=== PATIENT | female | born 1950 | race Caucasian/White ===

== ENCOUNTER 2016-12-29 16:49 | Observation (INO) ==
[2016-12-29] MEDS ORDERED: NITROGLYCERIN SL ONE (19:32)
[2016-12-29] MEDS ORDERED: ZOFRAN IV PRN ×2 (19:32→21:39)
[2016-12-29] MEDS ORDERED: GLUCAGON SUBQ ONE (19:33)
[2016-12-29] MEDS ORDERED: STERILE WATER INJ. ONE (19:44)
[2016-12-29] MEDS ORDERED: SODIUM CHLORIDE 0.9% INJ ONE ×2 (20:50→21:39)
[2016-12-29] MEDS ORDERED: PHENERGAN IV ONE (20:50)
[2016-12-29] MEDS ORDERED: NS 1,000 ML IV ONE (20:59)
[2016-12-29] MEDS ORDERED: SODIUM CHLORIDE 0.9% INJ PRN (21:39)
[2016-12-29] MEDS ORDERED: PHENERGAN IV PRN (21:39)
[2016-12-29] MEDS ORDERED: NS 1,000 ML IV SCH (21:39)
[2016-12-29] MEDS ORDERED: ATIVAN IV PRN (21:39)
[2016-12-29 23:07] LABS: HEMATOCRIT 35.3 % (37.0-47.0); MCH 32.8 PG (27-31); MCV 96.4 FL (81-99); MPV 10.6 FL (7.4-10.4); RBC 3.66 XMIL (4.2-5.4)
[2016-12-29] MEDS: PROTONIX IV SCH (23:25)
[2016-12-29 23:38] LABS: AGAP 10; BUN 10 mg/dL (8-22); CALCIUM 7.9 mg/dL (8.8-10.2); CHLORIDE 109 mmol/L (98-107); COSMO 288; POTASSIUM 4.1 mmol/L (3.5-5.1); SODIUM 146 mmol/L (136-145); TCO2 27 mmol/L (25-35)
[2016-12-30 07:13] LABS: AGAP 12; BUN 10 mg/dL (8-22); CALCIUM 8.7 mg/dL (8.8-10.2); CHLORIDE 108 mmol/L (98-107); COSMO 285; MAGNESIUM 1.7 mg/dL (1.5-2.7); POTASSIUM 4.1 mmol/L (3.5-5.1); SODIUM 144 mmol/L (136-145); TCO2 24 mmol/L (25-35)
[2016-12-30] MEDS: DEMEROL IV PRN ×4 (07:34→17:12)
[2016-12-30] MEDS ORDERED: DIPRIVAN 1% ONE (10:30)
[2016-12-30] MEDS: PROTONIX IV SCH (11:21)
[2016-12-30] MEDS ORDERED: CENTRUM SILVER PO SCH (11:30)
[2016-12-30] MEDS ORDERED: CARAFATE PO SCH (11:30)
[2016-12-30 13:39] VITALS: BP 132/65
== END 2016-12-30 17:23 | disposition home or self-care (01) ==
LOC: 4N 16:49 → ED 16:49 → SUATTDRO 21:34 → 4N 21:41
PROVIDERS: ATTEND Internal Medicine

== ENCOUNTER 2019-03-14 09:12 | Inpatient (IN) ==
[2019-03-14 10:51] LABS: BASO# 0.02 X1000 (0.0-0.2); BASO% 0.4 % (0.0-0.8); EOS# 0.18 X1000 (0.0-0.7); EOS% 3.4 % (0.0-10.0); HEMATOCRIT 37.9 % (37.0-47.0); HEMOGLOBIN 12.4 g/dL (12.0-16.0); LYMPH# 1.78 X1000 (1.2-3.4); LYMPH% 33.3 % (20.5-51.1); MCH 30.8 PG (27-31); MCHC 32.7 g/dL (33-37); MCV 94.3 FL (81-99); MONO% 9.4 % (1.7-9.3); NEUT# 2.86 X1000 (1.4-6.5); NEUT% 53.5 % (42.2-75.2); PLT 211 X1000 (130-400); RBC 4.02 XMIL (4.2-5.4); WBC 5.34 X1000 (4.8-10.8)
[2019-03-14 10:55] LABS: URINE SOURCE CLEAN CATCH
[2019-03-14] MEDS ORDERED: NS 1,000 ML IV PRN (10:57)
[2019-03-14 10:58] LABS: BILIRUBIN URINE NEGATIVE (NEGATIVE); BLOOD URINE NEGATIVE (NEGATIVE); COLOR YELLOW; GLUCOSE URINE NEGATIVE (NEGATIVE); KETONE URINE NEGATIVE (NEGATIVE); LEUKOCYTES URINE NEGATIVE (NEGATIVE); NITRITE URINE NEGATIVE (NEGATIVE); PH URINE 6.5; PROTEIN URINE NEGATIVE (NEGATIVE); SP GRAVITY URINE 1.008; TURBIDITY URINE CLEAR (CLEAR); UROBILINOGEN URINE NORMAL (NORMAL)
[2019-03-14 10:59] LABS: UR EPITHELIAL CELLS <10 /HPF (<10); URINE BACTERIA NEGATIVE /HPF; URINE RBC <10 /HPF (<10); URINE WBC <10 /HPF (<10)
--- NOTE | 2019-03-14 11:03 | EKG Report ---
Test Performed on : 03/14/2019 09:23:48 AM Test Reason : SOB Blood Pressure : / mmHG Vent. Rate : 069 BPM Atrial Rate : 069 BPM P-R Int : 170 ms QRS Dur : 080 ms QT Int : 392 ms P-R-T Axes : 090 088 083 degrees QTc Int : 420 ms Normal sinus rhythm. Normal ECG No previous ECGs available Unconfirmed Result
[2019-03-14 11:30] LABS: AGAP 11; ALB/GLOB RATIO 1.4; ALBUMIN 3.5 g/dL (3.5-5.0); ALKALINE PHOSPHATASE 113 U/L (32-104); BUN 8 mg/dL (8-22); CALCIUM 8.7 mg/dL (8.8-10.2); CHLORIDE 101 mmol/L (98-107); COSMO 277; CREATININE 0.8 mg/dL (0.5-0.9); ESTIMATED GFR > 60; GLUCOSE 93 mg/dL (70-104); GOT 12 U/L (10-30); GPT 6 U/L (10-36); SODIUM 140 mmol/L (136-145); TCO2 28 mmol/L (25-35); TOTAL BILIRUBIN 0.55 mg/dL (0.20-1.00)
--- NOTE | 2019-03-14 11:30 | Diag Imaging Result Doc PS360 ---
EXAM: CT HEAD W/O CONTRAST 03/14/2019 HISTORY: stroke like symptoms TECHNIQUE: This exam was performed using automated exposure control, adjustment of mA or kV according to patient size, and/or use of iterative reconstruction technique. COMMENT: There are calcifications in the internal carotid arteries bilaterally. There is no evidence of mass effect, bleed, or abnormal extra-axial fluid collection. The calvarium is intact. The visualized paranasal sinuses are clear. IMPRESSION: No evidence of acute intracranial disease. Electronically signed by Mannie Carbajal 03/14/2019 11:28 AM
--- NOTE | 2019-03-14 11:40 | Diag Imaging Result Doc PS360 ---
CHEST-PORTABLE - 03/14/2019 INDICATION: stroke like symptoms COMPARISON: 09/14/2017 FINDINGS: The lungs are normally expanded and clear. Heart size and mediastinal contours are normal. No pneumothorax or pleural effusion. IMPRESSION: Negative exam. Electronically signed by Sagar Liang 03/14/2019 11:38 AM
[2019-03-14 12:03] LABS: INR 1.03; PROTIME 13.7 Seconds (11.0-16.0)
[2019-03-14 12:04] LABS: PTT 36.3 Seconds (22.3-41.8)
--- NOTE | 2019-03-14 13:30 | PROVIDER DOCUMENTATION ---
This chart was entered by Crystal Price Scribe, acting as scribe for Phil Harper MD. HPI-Neurological Disorder - General Chief Complaint: Altered Mental Status Stated Complaint: SOB Time Seen by Provider: 03/14/19 10:43 Source: patient, family Allergies/Adverse Reactions: Patient Allergies Allergy/AdvReac Type Severity Reaction Status Date / Time No Known Allergies Allergy Verified 01/29/18 09:11 Home Medications: Home Medication List Medication Instructions Recorded Confirmed Last Taken Type Gabapentin 300 mg PO DAILY 01/29/18 03/14/19 02/05/18 History Hydromorphone HCl [Dilaudid] 4 mg PO TID 01/29/18 03/14/19 02/06/18 History - History of Present Illness-Neuro Nature of Presenting Problem: Patient is a 68 year old female who presents for stroke like symptoms. States having confusion this morning at 0430. Family reports patient having slurred speech and lightheadedness. Patient states symptoms have resolved. Severity: reports: mild Onset/Duration: reports: this morning (0430) Timing: reports: gone now Context: reports: impaired speech (slurred), other (AMS) Character of Altered Mental Status: reports: confused Character of Deficits: reports: impaired speech (slurred) Associated Symptoms: reports: other (lightheadedness) Similar Symptoms Previously?: No Recently seen or treated by another doctor?: No Review of Systems - Adult - REVIEW OF SYSTEMS - ADULT Constitutional: reports: no symptoms reported Eyes: reports: no symptoms reported Ears, Nose, Mouth & Throat: reports: no symptoms reported Cardiovascular: reports: no symptoms reported Respiratory: reports: no symptoms reported Gastrointestinal: reports: no symptoms reported Genitourinary: reports: no symptoms reported Musculoskeletal: reports: no symptoms reported Integumentary: reports: no symptoms reported Neurological: reports: no symptoms reported. denies: headache/migraines, slurred speech, syncope, other (AMS) Psychiatric: reports: no symptoms reported Endocrine: reports: no symptoms reported Hematologic/Lymphatic: reports: no symptoms reported Allergic/Immunologic: reports: no symptoms reported All Other Systems: Reviewed and Negative Past History - Adult - PAST MEDICAL HISTORY-ADULT Review of Records: reports: Old Records Reviewed, Nursing Assessment Review, Medications Reviewed, Social history reviewed & non-contributory. Major Childhood Illnesses: reports: denies history Cardiovascular: reports: HTN Respiratory: reports: denies history Gastrointestinal: reports: other (esophogeal stricture) Obstetrical/Gynecological: reports: denies history Genitourinary: reports: denies history Musculoskeletal: reports: chronic pain Neurological: reports: denies history Endocrine/Immune: reports: denies history Other Conditions: reports: denies history - PRIOR SURGERIES/PROCEDURES Surgical/Procedure History: reports: , back/neck, other (Esophageal Dialation) - IMMUNIZATION STATUS Childhood Immunizations: See Nurse Assessment Flu Vaccine: See Nurse Assessment - FAMILY HISTORY Family History: reviewed, not pertinent - SOCIAL HISTORY Smoking: cigarettes, greater than 1 pack/day Provider spent 3-5 mins advising pt. on dangers of tobacco.: Discussed manners to quit use, and f/u contacts for add'l counseling. Substance Use: denies Living Situation: family Physical Exam- Neurological - Physical Exam-Neuro Initial Vital Signs Reviewed: Yes General Appearance: alert, no apparent distress. negative: lethargic Eye Exam: bilateral eye: normal inspection HENMT: normocephalic/atraumatic, moist mucous membranes. negative: angioedema Head Injury: no evidence of injury. negative: active bleeding, swelling Respiratory: chest non-tender, lungs clear, normal breath sounds. negative: rhonchi, wheezing Cardiovascular: normal peripheral pulses, regular rate, rhythm. negative: tachycardia Abdominal Exam: normal bowel sounds, non tender, soft. negative: rigid Extremity: non-tender, normal inspection. 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 negative: abnormal speech, facial droop Neurologic: grossly normal, no motor/sensory deficits. negative: aphasia, motor weakness, sensory deficit Integumentary: normal color, normal turgor, warm/dry Psych/Mental Status: normal mood/affect, oriented x 3. negative: anxious, paranoid Progress - PLAN OF CARE/RESULTS Progress/Plan/Lab Results: Vital Signs - 8 hr 03/14/19 09:25 Temperature 98.4 F Pulse Rate 72 Respiratory Rate 22 Blood Pressure 137/78 O2 Sat by Pulse Oximetry 96 Laboratory Results - last 24 hr 03/14/19 03/14/19 03/14/19 09:42 09:42 09:42 WBC 5.34 RBC 4.02 L Hgb 12.4 Hct 37.9 MCV 94.3 MCH 30.8 MCHC 32.7 L RDW Std Deviation 13.0 Plt Count 211 MPV 11.0 H Immature Gran % (Auto) 0.0 Neut % (Auto) 53.5 Lymph % (Auto) 33.3 [place] % (Auto) 9.4 H Eos % (Auto) 3.4 Baso % (Auto) 0.4 Immature Gran # (Auto) 0.00 Neut # (Auto) 2.86 Lymph # (Auto) 1.78 [place] # (Auto) 0.50 Eos # (Auto) 0.18 Baso # (Auto) 0.02 PT 13.7 INR 1.03 PTT (Actin FS) 36.3 Sodium 140 Potassium 4.0 Chloride 101 Carbon Dioxide 28 Anion Gap 11 BUN 8 Creatinine 0.8 Estimated GFR/1.73 m2 > 60 BUN/Creatinine Ratio 10 Glucose 93 Calculated Osmolality 277 Calcium 8.7 L Total Bilirubin 0.55 AST 12 ALT 6 L Alkaline Phosphatase 113 H Troponin T Total Protein 6.0 L Albumin 3.5 Globulin 2.5 Albumin/Globulin Ratio 1.4 Urine Source Urine Color Urine Turbidity Urine pH Ur Specific [place] Urine Protein Ur Glucose (Stick) Ur Ketones (Stick) Urine Blood Urine Nitrite Urine Bilirubin Urobilinogen Dipstick Urine Leukocytes Urine WBC (Auto) Urine RBC (Auto) U Epithel Cells (Auto) Urine Bacteria (Auto) 03/14/19 03/14/19 09:42 10:47 WBC RBC Hgb Hct MCV MCH MCHC RDW Std Deviation Plt Count MPV Immature Gran % (Auto) Neut % (Auto) Lymph % (Auto) [place] % (Auto) Eos % (Auto) Baso % (Auto) Immature Gran # (Auto) Neut # (Auto) Lymph # (Auto) [place] # (Auto) Eos # (Auto) Baso # (Auto) PT INR PTT (Actin FS) Sodium Potassium Chloride Carbon Dioxide Anion Gap BUN Creatinine Estimated GFR/1.73 m2 BUN/Creatinine Ratio Glucose Calculated Osmolality Calcium Total Bilirubin AST ALT Alkaline Phosphatase Troponin T < 0.010 Total Protein Albumin Globulin Albumin/Globulin Ratio Urine Source CLEAN CATCH Urine Color YELLOW Urine Turbidity CLEAR Urine pH 6.5 Ur Specific [place] 1.008 Urine Protein NEGATIVE Ur Glucose (Stick) NEGATIVE Ur Ketones (Stick) NEGATIVE Urine Blood NEGATIVE Urine Nitrite NEGATIVE Urine Bilirubin NEGATIVE Urobilinogen Dipstick NORMAL Urine Leukocytes NEGATIVE Urine WBC (Auto) <10 Urine RBC (Auto) <10 U Epithel Cells (Auto) <10 Urine Bacteria (Auto) NEGATIVE Orders Category Date Time Status Cardiac Monitoring DIRECTED Care 03/14/19 10:57 Active Finger Stick Blood Sugar (ED) DIRECTED Care 03/14/19 10:57 Completed Misc. NRSG Communication Order DIRECTED Care 03/14/19 10:57 Active Oxygen Therapy- ED Nursing DIRECTED Care 03/14/19 10:57 Active Saline Loc NOW Care 03/14/19 10:57 Active CHEST-PORTABLE [RAD] Stat Exams 03/14/19 10:[address] HEAD W/O CONTRAST [CT] Stat Exams 03/14/19 10:57 Completed CBC WITH ELECTRONIC DIFF [HEME] Stat Lab 03/14/19 09:42 Completed COMPREHENSIVE METABOLIC PANEL [CHEM] Stat Lab 03/14/19 09:42 Completed PROTIME WITH INR [COAG] Stat Lab 03/14/19 09:42 Completed PTT [COAG] Stat Lab 03/14/19 09:42 Completed TROPONIN T Stat Lab 03/14/19 09:42 Completed UA [URINALYSIS W/POSS RFLX CULT] [URINALYSIS] Stat Lab 03/14/19 10:47 Completed 0.9% Sodium Chloride Inj [Ns] 1,000 ml Med 03/14/19 10:57 Active IV 250 mls/hr EKG [EKG] Stat Ther 03/14/19 10:57 Draft Result Diagrams: 03/14/19 09:42 03/14/19 09:42 - EKG 1 Time of EKG reading by physician:: 09:23 EKG Read and Signed by:: Phil Harper EKG Interpretation (*Must complete 3 of following elements*): Normal Rate: 69 Rhythm: normal sinus rhythm [place]: normal QRS: normal [place] Interval: normal ST Wave: normal Comments: normal ECG - XRAY 1 XRAY Study: Chest Impression: See EMR Report ( CHEST-PORTABLE - 03/14/2019 INDICATION: stroke like symptoms COMPARISON: 09/14/2017 FINDINGS: The lungs are normally expanded and clear. Heart size and mediastinal contours are normal. No pneumothorax or pleural effusion. IMPRESSION: Negative exam. Electronically signed by Sagar Liang 03/14/2019 11:38 AM 03/14/19 1138 Interpreting Physician: Sagar Liang MD Dictated Date/Time: 03/14/19 1138 cc: Phil Harper MD; Pablo Hernandez MD) - CT/MRI 1 CT Study: Head Impression: See EMR Report (EXAM: CT HEAD W/O CONTRAST 03/14/2019 HISTORY: stroke like symptoms TECHNIQUE: This exam was performed using automated exposure control, adjustment of mA or kV according to patient size, and/or use of iterative reconstruction technique. COMMENT: There are calcifications in the internal carotid arteries bilaterally. There is no evidence of mass effect, bleed, or abnormal extra-axial fluid collection. The calvarium is intact. The visualized paranasal sinuses are clear. IMPRESSION: No evidence of acute intracranial disease. Electronically signed by Mannie Carbajal 03/14/2019 11:28 AM 03/14/19 1128 Interpreting Physician: Mannie Carbajal MD Dictated Date/Time: 03/14/19 1127 cc: Phil Harper MD; Pablo Flores am, MD) - CONSULTS/PCP/HOSPITALIST Notification #1 *Consult/PCP/Hospitalist*: KIRSTEN León for Hospitalist Time Discussed: 13:19 Reason/Comments: Dr. Harper consulted with Romelia about patient Consult Disposition: Will see in ED, Admit Departure - Departure Date of Disposition Decision: 03/14/19 Time of Disposition Decision: 13:20 DIAGNOSIS: TIA (transient ischemic attack), HTN (hypertension) Disposition: ADMITTED INPATIENT 09 Certified Medical Emergency: Emergent Condition: Fair Referrals and Follow-Ups: Pablo Hernandez MD [Primary Care Provider] - - Critical Care Note This patient required my direct & personal management of CC.: No Attestation - Physician/ RUPAL Attestation Patient care was provided by Advanced Practice Provider:: No The physician spent face to face time with patient:: Yes Advanced Practice Provider documentation review:: Supervising physician onsite and consulted in the evaluation and care of this patient. The physician did have a face to face encounter with the patient. This chart was documented by the indicated scribe, (Crystal Price Scribe) and accurately reflects the services I performed and decisions made by me, Phil Harper MD, as attested by the provider's signature.
[2019-03-14] MEDS ORDERED: SOLU-MEDROL IV ONE ×2 (13:38→18:30)
[2019-03-14] MEDS ORDERED: DUONEB (A & A) INH ONE (13:38)
[2019-03-14] MEDS ORDERED: DUONEB (A & A) INH PRN (14:01)
[2019-03-14] MEDS ORDERED: NICODERM PATCH TD PRN (14:02)
[2019-03-14] MEDS ORDERED: LEVAQUIN 750 MG/D5W 750 MG/150 ML IVPB IV SCH (14:15)
--- NOTE | 2019-03-14 14:50 | Diag Imaging Result Doc PS360 ---
EXAM: MRI BRAIN W/WO CONTRAST 03/14/2019 HISTORY: TIA, 4 hours amnesia TECHNIQUE: T1 sagittal, axial and post gadolinium-enhanced axial with coronal reformation, axial T2, FLAIR, DWI and coronal gradient echo. COMMENT: There are no previous MRI studies available for comparison. There is considerable motion artifact. There is some minimal punctate increased T2-weighted signal intensity in the subcortical white matter of the left parietal lobe. There is no evidence of bleed or mass effect. There is no evidence of restricted diffusion. There is no evidence of abnormal gadolinium enhancement. There is no evidence of restricted diffusion. IMPRESSION: Minimal chronic microvascular changes. No evidence of acute disease. Electronically signed by Mannie Carbajal 03/14/2019 2:47 PM
[2019-03-14] MEDS: DUONEB (A & A) INH SCH ×3 (15:20→23:25)
--- NOTE | 2019-03-14 17:46 | HISTORY AND PHYSICAL ---
CHIEF COMPLAINT: Altered mental status, slurred speech, weakness. HISTORY OF PRESENT ILLNESS: This is a 68-year-old female with a history of skin cancer, hypertension and chronic back pain on chronic narcotics. She presents to the emergency room via EMS after being found disoriented. The patient states that she got up at 4 a.m., took her dog out for a walk as usual. The next thing she remembers it was about 9:00, and the phone was ringing, and it was 1 of her coworkers at work wondering where she was. She stated she was sitting on the couch. She does not remember coming in the house nor sitting down. She denied any vomiting, any defecation, urination. Reportedly on EMS arrival, the patient had a near syncopal episode when they stood her to go to the stretcher. On arrival to the emergency room, she was noted to have some slurred speech. She was confused. At the time of my exam, symptoms have resolved. She denies any prior episodes similar to this. PAST MEDICAL HISTORY: Esophageal stricture status post multiple dilatations, hypertension, chronic back pain on chronic narcotics. PAST SURGICAL HISTORY: section, back surgery, neck surgery. ALLERGIES: No known drug allergies. HOME MEDICATIONS: A list will be obtained by the nursing staff and once verified, we will review and restart as appropriate. SOCIAL HISTORY: She smokes a pack a day. She denies alcohol or illicit drug use. She continues to work daily. REVIEW OF SYSTEMS: Discussed with the patient with pertinent positives stated in the HPI. She denied any dizziness, any chest pain or palpitations, any shortness of breath, PND, orthopnea, any nausea, vomiting, diarrhea, constipation, black or bloody vomitus or stools, any dysuria, hematuria, frequency or urgency. PHYSICAL EXAMINATION: GENERAL: This is a 68-year-old female who is sitting up on the stretcher in the emergency room in no distress. VITAL SIGNS: Blood pressure is 137/78 with a heart rate of 72, respirations are 20, temperature is 98.4 degrees oral with room air saturations 96%. HEENT: Head is normocephalic, atraumatic. Mucous membranes are moist. NECK: Supple with trachea midline. CARDIOVASCULAR: Regular rate and rhythm. S1 and S2 appreciated. She has no lower extremity edema. Peripheral pulses are palpable x4 extremities. Calves are nontender bilateral. PULMONARY: Breath sounds are clear with no increased work of breathing noted. Chest rises and falls symmetric with respiration. Chest wall is nontender to palpation. GASTROINTESTINAL: Abdomen is soft, nontender, nondistended with bowel sounds in all 4 quadrants. GENITOURINARY: No CVA or suprapubic tenderness. NEUROLOGIC: Pupils are equal, round, react to light. EOMs are intact. Forehead is spared. Equal nasal flaring. No tongue or uvula deviation. No facial droop. Speech is clear. Equal shoulder shrug. No plantar drift. Muscle strength is 5/5 x4 extremities. Tmhotw-ew-bteo is 3/3 bilateral. Ofjs-vsjy-mv-james is 3/3 bilateral. LABORATORY DATA: WBC is 5.3 with hemoglobin 12.4, hematocrit 37.9, and platelets 211,000. Sodium 140, potassium 4, BUN 8, creatinine 0.8 with a glucose of 93. Urinalysis is essentially negative. INR is 1.03. CT of the head revealed no evidence of acute intracranial disease. IMAGING: Chest x-ray was negative exam. EKG: Sinus rhythm at a rate of 69. ASSESSMENT AND PLAN: 1. Transient ischemic attack, back and neck pain. 2. Transient loss of time 3. Hypertension. 4. Chronic back pain on chronic narcotics. 5. History of esophageal stricture status post multiple dilatations. PLAN: Patient will be admitted to the medical floor and placed on telemetry for close monitoring with neuro checks every 4 hours. DuoNeb q.4 hours when awake with q.2 hours p.r.n., steroids to taper. MRI of the brain with and without contrast. We will start Levaquin 750 q.24 hours given nicotine patch. CBC, CMP and lipid profile in the am magnesium now. The patient was examined, and the plan was discussed with Dr. Ray. Further treatments pending hospital course. Dictated by KIRSTEN Raza for Collin Mcdaniels MD Addendum: Patient seen and examined by myself. Agree with KIRSTEN note. It reflects my assessment and plan. Patient is being admitted to hospital for observation for TIA symptoms. Will monitor patient closely and will continue with home medications. cc: KIRSTEN Raza MD [facility]
[2019-03-14] MEDS: NS 1,000 ML IV SCH (18:04)
[2019-03-14] MEDS: DILAUDID PO SCH (20:29)
[2019-03-14] MEDS ORDERED: NEURONTIN PO SCH ×2 (21:00)
[2019-03-14] MEDS: ZOFRAN IV PRN (23:11)
[2019-03-15] MEDS: ZOFRAN IV PRN (03:26)
[2019-03-15] MEDS: SOLU-MEDROL IV SCH ×2 (03:27→12:47)
[2019-03-15] MEDS ORDERED: SODIUM CHLORIDE 0.9% INJ ONE (05:00)
[2019-03-15] MEDS ORDERED: PHENERGAN IV ONE (05:00)
[2019-03-15 05:36] LABS: EOS# 0.01 X1000 (0.0-0.7); EOS% 0.4 % (0.0-10.0); HEMATOCRIT 37.9 % (37.0-47.0); HEMOGLOBIN 12.4 g/dL (12.0-16.0); LYMPH# 0.32 X1000 (1.2-3.4); LYMPH% 11.5 % (20.5-51.1); MCH 30.5 PG (27-31); MCHC 32.7 g/dL (33-37); MCV 93.3 FL (81-99); MONO# 0.03 X1000 (0.11-0.59); MONO% 1.1 % (1.7-9.3); MPV 11.1 FL (7.4-10.4); NEUT# 2.43 X1000 (1.4-6.5); PLT 195 X1000 (130-400); RBC 4.06 XMIL (4.2-5.4); RDW 12.7 % (11.5-14.5); WBC 2.79 X1000 (4.8-10.8)
[2019-03-15 05:55] LABS: CHOLESTEROL 184 mg/dL (0-200); HDL 68 mg/dL (45-65); LDL 104 mg/dL; TRIGLYCERIDES 59 mg/dL (35-135); VLDL 12 mg/dL
[2019-03-15 06:00] LABS: AGAP 13; ALB/GLOB RATIO 1.5; ALBUMIN 3.7 g/dL (3.5-5.0); ALKALINE PHOSPHATASE 112 U/L (32-104); BUN 10 mg/dL (8-22); CALCIUM 9.1 mg/dL (8.8-10.2); CHLORIDE 103 mmol/L (98-107); COSMO 284; CREATININE 0.8 mg/dL (0.5-0.9); ESTIMATED GFR > 60; GLUCOSE 157 mg/dL (70-104); GOT 12 U/L (10-30); GPT 6 U/L (10-36); POTASSIUM 4.1 mmol/L (3.5-5.1); SODIUM 141 mmol/L (136-145); TCO2 25 mmol/L (25-35); TOTAL BILIRUBIN 0.44 mg/dL (0.20-1.00); TOTAL PROTEIN 6.2 g/dL (6.3-8.3)
[2019-03-15] MEDS: DUONEB (A & A) INH SCH ×2 (07:21→11:20)
[2019-03-15 09:07] VITALS: BP 120/69
[2019-03-15] MEDS: NS 1,000 ML IV SCH (09:14)
[2019-03-15] MEDS: DILAUDID PO SCH (09:14)
--- NOTE | 2019-03-15 11:39 | DISCHARGE SUMMARY ---
ADMISSION DATE: 03/14/2019 DISCHARGE DATE: 03/15/2019 DIAGNOSES: 1. Transient ischemic attack. 2. Back and neck pain, chronic. 3. Reported loss of time. 4. Hypertension. 5. Chronic back pain, on chronic narcotics. 6. History of esophageal stricture, status post multiple dilatations. DIAGNOSTICS: 1. Chest x-ray revealed negative exam. 2. CT of the head revealed no evidence of acute intracranial disease. 3. MRI of the brain revealed minimal chronic microvascular changes. No evidence of acute disease. HOSPITAL COURSE: Ms. Curtis presented to the emergency room after having altered mental status with slurred speech and weakness. Reportedly, she got up at 4 o'clock, took her dog out for a walk. The next thing she remembers is the phone ringing about 9 o'clock in the morning and her co- worker was asking her why she was not at work. Her last recollection prior to the phone ringing was opening the door and walking out with her dog. She denied any episode similar to this in the past. She did have some slurred speech and weakness on arrival to the emergency room. This has resolved. Herself as well as her coworkers state that she is back to her normal health. CT of the head and MRI of the brain were both negative. Thankfully, she is ready for discharge. She did report having a cough over the previous 4 to 5 days, stating that secretions had started out clear and had gotten a little thicker. We started her on Levaquin, although she had no further cough while in the hospital with no fever and no white count. Thankfully, she is ready for discharge. DISCHARGE VITAL SIGNS: Blood pressure is 120/69, with a heart rate of 89, respirations 16, temperature is 97.2 degrees oral, with room air saturations 96-98%. DISCHARGE PHYSICAL EXAMINATION: Cardiovascular: Regular rate and rhythm. S1 and S2 are appreciated. She has no lower extremity edema. Calves are nontender bilaterally, with peripheral pulses palpable x4 extremities. Pulmonary: Breath sounds are clear with no increased work of breathing noted. Chest rises and falls symmetrically with respirations. Chest wall is nontender to palpation. Gastrointestinal: Abdomen is soft, nontender, nondistended, with bowel sounds in all 4 quadrants. Neurologic: Pupils are equal, round, react to light. EOMs are intact. Sclerae anicteric. Forehead is spared. She has no nasal flaring. No tongue or uvula deviation. No facial droop. Speech is clear. Equal shoulder shrug. No plantar drift. Loss Prevention Specialist are equal. Muscle strength is 5/5 x4 extremities. Gait is steady. She is alert and oriented x3. DISCHARGE MEDICATIONS: 1. Gabapentin 300 mg p.o. at bedtime. 2. Dilaudid 4 mg tablets, half a tablet as needed 3 times a day. According to our records, the patient is prescribed 4 mg tablets 5 times a day. She has been taking this for the last 3 months. We did recommend that she decrease her dose due to this episode. She did voice understanding. We encouraged her to call her prescribing physician to discuss this episode and her dosing with them. She is being discharged home in stable condition with friends. TIME SPENT: This is a greater than 30 minute discharge. Dictated by KIRSTEN Raza for Collin Mcdaniels MD Addendum: Patient seen and examined by myself. Agree with KIRSTEN note. It reflects my assessment and plan. Patient is being discharged in stable condition. Will be seen by PCP in a week. cc: [facility]aza [facility]
== END 2019-03-15 13:04 | disposition home or self-care (01) ==
LOC: SUPCPDRO → ED 09:12 → EDIPHOLD 14:16 → 1N 18:37
PROVIDERS: ATTEND Internal Medicine